=== PATIENT | female | born 1970 | race American Indian/Alaskan Native ===

== ENCOUNTER 2017-12-09 11:31 | Outpatient (CLI) | payer BC ==
--- NOTE | 2017-12-10 07:52 | Mammography Report ---
Screening mammogram: Routine views demonstrates asymmetric fibroglandular tissue density in the upper-outer right breast that is somewhat more prominent than seen on a prior exam in 2013. There is no definable mass and no architectural distortion. The breast pattern otherwise is generally symmetric and unremarkable as well as being unchanged from prior exam. It is of note that there is a mild technical differences between the 2 exams. CAD used. Impression: Right breast asymmetry of questionable significance. Recommendation: Additional compression imaging of the right breast and ultrasound, if needed. BI-RADS CATEGORY: 0 = Needs additional imaging evaluation ACR BI-RADS MAMMOGRAPHIC CODES: 0 = Needs additional imaging evaluation; 1 = Negative; 2 = Benign; 3 = Probably benign; 4 = Suspicious; 5 = Malignant; 6 = Known biopsy-proven malignancy COMMENT: 1. Dense breast tissue, i.e., adenosis, fibrocystic changes, etc., may obscure an underlying neoplasm. 2. Approximately 10% of cancers are not detected with mammography. 3. A negative mammography report should not delay biopsy if a clinically suspicious mass is present.
== END 2017-12-09 11:32 | disposition home or self-care (01) ==
LOC: MAMMO 11:31
PROVIDERS: ATTEND Obstetrics & Gynecology
DX: Z12.31 Encounter for screening mammogram for malignant neoplasm of breast (principal)
CPT/HCPCS: 77067

== ENCOUNTER 2017-12-17 09:54 | Outpatient (CLI) | payer BC ==
--- NOTE | 2017-12-17 11:31 | Ultrasound Report ---
RIGHT DIGITAL DIAGNOSTIC MAMMOGRAM and RIGHT BREAST ULTRASOUND: 12/17/17 09:54:00 CLINICAL: Recalled for asymmetry. A bilateral breast reduction is planned for next week. COMPARISON:12/09/17 screening FINDINGS: Additional mammographic views were performed and demonstrate normal fibroglandular structures in the upper outer quadrant. Ultrasound of the upper outer quadrant of the right breast was performed and demonstrated normal structures with no mass, cyst or shadowing. IMPRESSION: Negative mammogram and negative right breast ultrasound. BI-RADS CATEGORY: 1 -- Negative RECOMMENDATION: Routine mammographic screening in one year. ACR BI-RADS MAMMOGRAPHIC CODES: 0 = Needs additional imaging evaluation; 1 = Negative; 2 = Benign; 3 = Probably benign; 4 = Suspicious; 5 = Malignant; 6 = Known biopsy-proven malignancy COMMENT: 1. Dense breast tissue, i.e., adenosis, fibrocystic changes, etc., may obscure an underlying neoplasm. 2. Approximately 10% of cancers are not detected with mammography. 3. A negative mammography report should not delay biopsy if a clinically suspicious mass is present. COMMENT: Patient follow-up letters are generated via our [employer] application.
== END 2017-12-17 09:55 | disposition home or self-care (01) ==
LOC: MAMMO 09:54
PROVIDERS: ATTEND Obstetrics & Gynecology
DX: R92.8 Other abnormal and inconclusive findings on diagnostic imaging of breast (principal)

== ENCOUNTER 2019-10-08 09:00 | Observation (INO) | payer BC ==
[2019-10-05 10:49] LABS: Hematocrit 38.3 % (30.3-42.9); Hemoglobin 12.3 gm/dl (10.1-14.3); Mean Corpuscular HGB Conc 32 % (30-34); Mean Corpuscular Volume 85 fl (79-97); Platelet Count 214 K/mm3 (140-440); Red Blood Count 4.49 M/mm3 (3.65-5.03)
[2019-10-05 10:51] LABS: Red Cell Distribution Width 21.8 % (13.2-15.2)
--- NOTE | 2019-10-05 10:53 | Anesthesia Consultation ---
Anesthesia Consult and Med Hx - Airway Anesthetic Teeth Evaluation: Good ROM Head & Neck: Adequate Mental/Hyoid Distance: Adequate Mallampati Class: Class II Intubation Access Assessment: Good - Pulmonary Exam CTA: Yes - Cardiac Exam Cardiac Exam: RRR - Pre-Operative Health Status ASA Pre-Surgery Classification: ASA2 Proposed Anesthetic Plan: General Nerve Block: TAP - Pulmonary Hx Smoking: No Hx Asthma: No COPD: No - Cardiovascular System Hx Hypertension: No - Central Nervous System Hx Neuromuscular Disorder: No Hx Psychiatric Problems: No - Gastrointestinal Hx Ulcer: No - Endocrine Hx Renal Disease: No - Hematic Hx Anemia: Yes - Other Systems Hx Alcohol Use: Yes (Occas) Hx Cancer: No
[2019-10-05 11:03] LABS: BUN/Creatinine Ratio 18; Blood Urea Nitrogen 11 mg/dL (7-17); Calcium 8.7 mg/dL (8.4-10.2); Hemolysis Index 8
[2019-10-05 11:32] LABS: Anisocytosis 1+; Basophils % (Manual) 0 % (0.0-1.8); Eosinophils % (Manual) 0 % (0.0-4.3); Platelet Estimate Consistent w Auto; Total Cells Counted 100
--- NOTE | 2019-10-05 21:37 | History and Physical Report ---
History of Present Illness Date of examination: 10/05/19 History of present illness: Patient has been reassessed/reevaluated. H&P has been reviewed. No interval changes. This is a 48 years old female patient complains of menorrhagia, dysmenorrhea and back pain, but denies abnormal pap smears, dyspareunia, post-coital bleeding, abnormal vaginal discharge, breast mass or lumps, depression, anxiety, urinary symptoms, chest pain, palpitations, shortness of breath, leg swelling, abdominal pain, headaches and bowel problems. The patient notes that she is sexually active. The patient reports that she has regular menses. The patient also presents with menstrual disorder. The symptoms began >1 year ago. She complains of heavy bleeding and dysmenorrhea, but denies irregular menses, mid-cycle spotting, lack of menses, clotting, history of ovarian cysts, history of thyroid disease, history of fibroids, history of PCOS, history of bleeding disorder, lightheadedness, fatigue and cramping. Interval between menses is 28 days and 30 days. Menstrual flow lasts 5 days and 7 days. Patient states hospitalized 07/07 to 07/[address] 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 Patient's work up has included hysterosonogram which showed a thicken endometrium with an anterior myoma. Patient initially desired expectant management for now. Her symptoms have worsen.Patient's symptoms when present disrupts her normal daily activities Patient desires definitive treatment Vital Signs: Patient Profile: 48 Years Old Female LMP: 09/07/2019 Height: 66 inches (167.64 cm) Weight: 204 pounds BMI: 32.92 Menstrual History: LMP (date): 09/07/2019 Current Method of Contraception: BTL Date of Last Pap Smear: 03/30/2019 Past History : 3 Term Births: 3 Premature Births: 0 Living Children: 3 Para: 3 Mult. Births: 0 Prev : 0 Aborta: 0 Elect. Ab: 0 Spont. 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 of genital herpes: yes Current Allergies (reviewed today): No known allergies Past Medical History: " bulging disc" Anemia s/p Iron infusions (09/2017) Fibroids Blood Transfusion (07/07/2019) Past Surgical History: : Tubal Ligation (1997) PPBTL Gastric Bypass: (05/13/2014) gastric sleeve Breast Reduction: (12/2017/) Family History Summary: Reviewed history Last on 03/30/2019 and no changes required:10/05/2019 General Comments - FH: Family History of Coronary Heart Disease Family History of Diabetes Family History of CVA or Stroke Family History of Hypertension No Family History of Breast Cancer No Family History of Cervical Cancer No Family History of Colon Cancer No Family History of Ovarvian Cancer Social History: 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 Denies fever, chills, sweats, anorexia, weakness, malaise, weight loss and sleep disorder. Complains of menorrhagia, pelvic pain, painful periods and painful sex. Denies vaginal discharge, incontinence, dysuria, hematuria, urinary frequency, amenorrhea, abnormal vaginal bleeding, genital sores, decreased libido, urinary urgency, hot flashes, vaginal dryness, vaginal itching and vaginal odor. CV Denies chest pains, palpitations, syncope, dyspnea on exertion, orthopnea, PND and peripheral edema. Resp Denies cough, dyspnea at rest, excessive sputum, hemoptysis, wheezing and pleurisy. GI Denies nausea, vomiting, diarrhea, constipation, change in bowel habits, abdominal pain, melena, hematochezia, jaundice, gas/bloating, indigestion/heartburn, dysphagia and odynophagia. Breast Denies left breast lump, right breast lump, nipple discharge, bloody discharge from nipple, breast pain, abnormal mammogram and breast enlargement. Psych Denies depression, anxiety, irritability and mood swings. Past History Past Medical History: other (SEE HPI) Past Surgical History: Other (SEE HPI) Social history: full code, other (SEE HPI) Family history: other (SEE HPI) Medications and Allergies Allergies Allergy/AdvReac Type Severity Reaction Status Date / Time No Known Allergies Allergy Unverified 10/02/19 07:52 Home Medications Medication Instructions Recorded Confirmed Last Taken Type HYDROcodone/APAP 10-325 [[place] 1 each PO Q8HR PRN 10/05/19 10/05/19 Unknown History 10325] tiZANidine [Zanaflex 4mg TAB] 4 mg PO BID 10/05/19 10/05/19 Unknown History Active Meds: Active Medications Lactated Ringer's (Lactated Ringers) 1,000 mls @ 100 mls/hr IV DIRECT JACKIE Midazolam HCl (Versed) 2 mg IV PREOP NR Stop: 10/05/19 23:59 Review of Systems Constitutional: other (SEE HPI) Exam - Physical Exam Narrative exam: HEENT: normocephalic, no lesions or deformities Skin no significant abnormal lesions or rashes Chest: respiratory effort normal, clear to auscultation Breasts: Breast reduction surgical scars bilaterally skin/areolae normal, no masses, no nipple discharge, no erythema/warmth/tenderness, and axillae normal. 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 No evidence of cystocele or rectocele. Cervix: normal appearance, no lesions, no discharge Uterus: enlarged uterus 14 -16 weeks in size Adnexae: unable to palpate due to patient's guarding Rectovaginal: exam defered - Constitutional Vitals: Temp Pulse Resp BP Pulse Ox 98.6 F 60 20 120/79 99 10/05/19 10:20 10/05/19 10:20 10/05/19 10:20 10/05/19 10:20 10/05/19 10:20 Results - Labs CBC & Chem 7: 10/05/19 10:30 10/05/19 10:17 Labs: Abnormal lab results 10/05/19 10/05/19 Range/Units 10:17 10:30 WBC 3.0 L (4.5-11.0) K/mm3 MCH 27 L (28-32) pg RDW 21.8 H (13.2-15.2) % Lymphocytes % (Manual) 47.0 H (13.4-35.0) % Seg Neutrophils # Man 1.4 L (1.8-7.7) K/mm3 Creatinine 0.6 L (0.7-1.2) mg/dL Assessment and Plan - Patient Problems (1) Intramural leiomyoma of uterus Status: Acute Plan to address problem: Diagnosis explained to patient . Questions answered. Discussed with patient various medical, surgical and radiological therapies common for treatment including expectant management, myomectomy hysterectomy and uterine artery embolization Patient desires definitive treatment Patient desires hysterectomy Discussed risks and benefits of laparotomy, laparoscopy, vaginal and robotic assisted approaches for hysterectomies Patient desires robotic assisted total hysterectomy. Patient desires robotic assisted total hysterectomy. Consent reviewed and signed . The risks and alternatives for this surgery were reviewed with the patient. Discuss the risks of the surgery including infection, bleeding possibly heavy enough to require a blood transfusion, possible damage to bowel, bladder or ureter. Patient understand that this surgery with make her sterile.Patient understands if her ovaries are removed she will become menopausal. Also if unable to complete robitcally a laparotomy may be required. Patient advised the small risks of spreading of malignancy if morcellator is used during the surgery patient understands and approve of use if necessary. Patient desires retain her ovaries unless an abnormality is seen (2) Menorrhagia Status: Acute Qualifiers: Menorrhagia type: with regular cycle Qualified Code(s): N92.0 - Excessive and frequent menstruation with regular cycle Plan to address problem: Probably secondary to # 1 (3) Dysmenorrhea Status: Acute Plan to address problem: Probably secondary to # 1 (4) Anemia due to blood loss, chronic Status: Acute Plan to address problem: Probably secondary to # 2 (5) Lumbar disc disease Status: Acute (6) Peripheral vascular disease Status: Acute Plan to address problem: Patient states her PCP Dr Hopkins informed her that she may have peripheral vaccular disease Patient states he informed her that it was ok for her to proceed with her hysterectomy and further diagnostic testing will be done postoperatively.
--- NOTE | 2019-10-08 07:51 | Anesthesia Day of Surgery ---
Anesthesia Day of Surgery - Day of Surgery Patient Examined: Yes Patient H&P Reviewed: Yes Patient is NPO: Yes
--- NOTE | 2019-10-08 08:48 | Event Note ---
Date: 10/08/19 TAP Block After time out, the areas were prepped and draped in the usual fashion. Iv sedation with Versed 2 mg and Fentanyl 100mcg. Good visualization on both sides. 20 ml of 0.5 % Ropivacaine injected per side in 5 ml increments and negative aspiration for blood. VSS Pt tolerated procedure well.
[~2019-10-08 09:00] MED LIST: BUPIVACAINE/PF (0.5%) 5 MG/1 ML 10 ML VIAL INFILTRATI NR; GLYCOPYRROLATE 0.4 MG/2 ML INJ ONE; HYDROmorphone 1 MG/1 ML INJ ONE; KETOROLAC 30 MG/1 ML INJ ONE; LACTATED RINGERS 1,000 ML IV SCH; LIDOCAINE MPF (2%) 20 MG/1 ML VIAL 5 ML ONE; METOCLOPRAMIDE 10 MG/2 ML INJ ONE; MIDAZOLAM 2 MG/2 ML INJ IV NR; MIDAZOLAM 2 MG/2 ML INJ IV SCH; MIDAZOLAM 2 MG/2 ML INJ ONE; NEOMY 40 MG/POLYMYXIN B 200,000 UNITS/ML (GU) AMPULE IR ONE; NEOSTIGMINE 10MG/10 ML INJ MDV ONE; ONDANSETRON 4 MG/2 ML INJ ONE; ROCURONIUM 50 MG/5 ML INJ IV ONE; ROPIVACAINE/PF (0.5%) 5 MG/1 ML 30 ML VIAL ONE; ceFAZolin/STERILE WATER 2 GM/20 ML SYRINGE IV NR; ceFAZolin/Water 2 GM/20 ML 2 GM/20 ML SYRINGE IV NR; dexAMETHasone 20 MG/5 ML VIAL ONE; fentaNYL 100 MCG/2 ML INJ IV ONE; fentaNYL 100 MCG/2 ML INJ ONE; propofoL 200 MG/20 ML VIAL IV ONE
[2019-10-08] MEDS ORDERED: CITRIC ACID-SOD CITRATE 500 ML IV ONE (09:10)
[2019-10-08] MEDS ORDERED: SODIUM CHLORIDE 0.9% IRR 1,500 ML BOTTLE IR ONE (09:39)
[2019-10-08] MEDS ORDERED: SODIUM CHLORIDE 0.9% IRRIG SOLN 2000 ML IR ONE (09:39)
[2019-10-08] MEDS ORDERED: NEOMY 40 MG/POLYMYXIN B 200,000 UNITS/ML (GU) AMPULE IR ONE (09:39)
[2019-10-08] MEDS ORDERED: CITRIC ACID-SOD CITRATE SOLN 500 ML IV SOLN IV ONE (09:40)
[2019-10-08] MEDS ORDERED: LACTATED RINGERS 1,000 ML ONE (09:50)
[2019-10-08] MEDS ORDERED: ROCURONIUM 50 MG/5 ML INJ IV ONE (09:50)
[2019-10-08] MEDS ORDERED: ePHEDrine SULFATE 50 MG/1 ML INJ ONE (09:54)
[2019-10-08] MEDS ORDERED: SODIUM CHLORIDE P/F VIAL 10 ML 10 ML ONE (09:55)
[2019-10-08] MEDS ORDERED: GLYCOPYRROLATE 0.4 MG/2 ML INJ ONE (10:57)
--- NOTE | 2019-10-08 11:35 | Operative Report ---
Operative Report Operative Report: Date of procedure: October 08, 2019 Pre-operative diagnosis: Symptomatic leiomyomata with menorrhalgia and dysmen orrhea. Status post blood transfusions for severe anemia Post-operative diagnosis: Same Procedure name(s):Robotic Assisted Total Hysterectomy with bilateral salpingectomy Surgeon: Pj Umanzor MD Sharepoint Application Architect: Deborah Tee, certified home health aide Anesthesia: General EBL: 100 cc Complications: None Findings: Patient with the uterus with multiple myomas with size approximately 14 to 16 weeks she had normal-appearing ovaries bilaterally corpus luteum cyst on her right ovary bilaterally her lochia and tubes were interrupted from previous tubal ligation Specimen(s): Uterus with cervix and bilateral fallopian tubes Procedure: Patient was brought to the operating room where general anesthesia was induced without difficulty. Patient was placed in the dorsal lithotomy position. Prepped and draped in the usual sterile manner for robotic procedure. Wharton catheter was placed without difficulty. Speculum was placed in the vagina. A large V-Care Uterine manipulator was placed without difficulty. Attention was now switched to the patient's abdomen. A vertical supra-umbilicus incision was made with a scalpel. A 10-12 trocar was placed in this incision under direct visualization. Intra-abdominal placement was verified with no evidence of internal organ damage. The patient pelvic findings were noted as above. It was determined that the patient was a candidate for robotic procedure. On both sides the umbilical incision at about 8 cm, incisions were made for robotic trocars. Each robotic trocar was placed under direct visualization with no evidence of internal organ damage. One 5 mm trocar was placed 2 fingerbreadths above the right iliac crest. A 5 mm camera was placed in the right lower quadrant trocar, the 10-12 trocar was removed and a Ernst Fulton laparoscopic port closure device was placed through this incision under direct visualization with no evidence of internal organ damage. The 10-12 trocar was then replaced into midline port under direct camera assistance. At this time the patient was placed in extreme Trendelenburg. The da Marilyn robot was then docked on the patient's left side. The trocars connected to the robot appropriately robotic instruments were placed under direct visualization no evidence of internal organ damage.. At this time I took my place under the robotic operating watkins. Starting on the patient's right side the ureter was identified and found to be out of the operative field. Using the robotic vessel sealer the mesosalpinx under the fallopian tube were cauterized and cut starting from the distal end. Utero-ovarian complex was then cauterized and cut. This was followed by cauterizing and cutting the right fallopian tube and right round ligament. The broad ligament was then opened. The bladder flap was formed anteriorly. The posterior broad ligament was then excised. The uterine vessels were skeletonized. The ureter was clearly seen out of the operative field. The bladder was pushed away from the anterior uterus. The right uterine vessels were then cauterized and cut. Attention was then switched to the patient's left side. The same procedure was repeated on the left side with perform the salpingectomy followed by isolating the uterine vessels cauterized and cutting and completing the bladder flap from the left side. At this time the uterus was appearing very cyanotic. After inspecting the bladder flap to insured no evidence of bladder injury, the colpotomy was then started. Incision started at 6:00 until the V-Care could be seen. This incision was extended from 6:00 to 9:00. Then from 6:00 to 3:00. Then from 9:00 to 12:00. This incision was extended from 3:00 to 12:00. At this time colpotomy was complete with no evidence of adjacent organ damage. The dental front office assistant remove the uterus from through the colpotomy site. The vaginal cuff was irrigated and cauterized and found to be hemostatic. The cuff was closed with roboticly using 0 V- Lock suture. This closure was hemostatic after irrigation and Bovie. All pedicles were inspected and found to be hemostatic. The ureters were identified bilaterally and found to be functioning normal. The patient had clear urine in the Wharton catheter with no evidence of mixture with blood. Irais was placed on the cuff and pedicles for postoperative hemostasis . All instruments were then removed. The large trocar sites were closed in layers 2-0 Vicryl and 4-0 Monocryl. The smaller incisions were closed subcuticularly with 4-0 Monocryl. Dermabond was placed over the skin incisions. The patient tolerated procedure well. She was awakened in the operating room and accompanied to the recovery room in good condition.
[2019-10-08] MEDS: HYDROmorphone 1 MG/1 ML INJ IV PRN ×2 (11:46→12:00)
[2019-10-08] MEDS ORDERED: ONDANSETRON 4 MG/2 ML INJ IV PRN ×2 (11:50→13:21)
[2019-10-08] MEDS ORDERED: HYDROmorphone 1 MG/1 ML INJ ONE (11:52)
[2019-10-08] MEDS ORDERED: D5W/LACTATED RINGERS 1,000 ML IV ONE (12:15)
--- NOTE | 2019-10-08 12:57 | Post Anesthesia Evaluation ---
- Post Anesthesia Evaluation Patient Participated: Yes Airway Patent: Yes Stable Respiratory Function: Yes Nausea/Vomiting: No Temp > 96.8F: Yes Pain Manageable: Yes Adequeate Hydration: Yes Anesthesia Complications: No
[2019-10-08] MEDS ORDERED: D5W/LACTATED RINGERS 1,000 ML IV SCH (13:21)
[2019-10-08] MEDS: ceFAZolin/NS 1 GM/50 ML 1 GM/50 ML BAG IV SCH ×2 (14:16→21:59)
[2019-10-08] MEDS: KETOROLAC 30 MG/1 ML INJ IV SCH ×2 (14:16→20:00)
[2019-10-08] MEDS: HYDROcodone/ACETAMINOPHEN 5-325 MG TAB PO PRN ×2 (16:03→22:01)
--- NOTE | 2019-10-08 17:20 | Event Note ---
Date: 10/08/19 Day of surgery. Discuss operative findings with patient and questions answered. Patient complains of abdominal pain but denies any nausea vomiting. Patient without fever. Will ambulate in halls this evening. Good urine output. We will continue routine postoperative care.
[2019-10-08] MEDS ORDERED: DOCUSATE SODIUM 100 MG CAP PO SCH (22:00)
[2019-10-08] MEDS ORDERED: tiZANidine TAB 4 MG TAB PO SCH (22:00)
[2019-10-09] MEDS: KETOROLAC 30 MG/1 ML INJ IV SCH ×2 (02:46→08:06)
[2019-10-09 04:30] LABS: Hematocrit 37.2 % (30.3-42.9); Hemoglobin 11.9 gm/dl (10.1-14.3)
[2019-10-09] MEDS ORDERED: IBUPROFEN 800 MG TAB PO PRN (06:00)
[2019-10-09] MEDS: HYDROcodone/ACETAMINOPHEN 5-325 MG TAB PO PRN (06:21)
--- NOTE | 2019-10-09 10:44 | Short Stay Summary ---
Short Stay Documentation Date of service: 10/08/19 - History H&P: dictated Past Medical History: other (SEE HPI) Past Surgical History: Other (SEE HPI) Social history: full code, other (SEE HPI) - Allergies and Medications Current Medications: Allergies No Known Allergies Allergy (Unverified 10/02/19 07:52) Home Medications Medication Instructions Recorded Confirmed Last Taken Type HYDROcodone/APAP 10-325 [[place] 1 each PO Q8HR PRN 10/05/19 10/08/19 10/07/19 23:00 History 10/325] tiZANidine [Zanaflex 4mg TAB] 4 mg PO BID 10/05/19 10/08/19 10/07/19 23:00 History Ibuprofen [Motrin 800 MG tab] 800 mg PO Q6H PRN #30 tablet 10/08/19 Unknown Rx oxyCODONE /ACETAMINOPHEN [Percocet 1 - 2 tab PO Q4H PRN #20 tablet 10/08/19 Unknown Rx 5/325 mg] Active Medications Acetaminophen/Hydrocodone Bitart (Horton 5/325) 2 each PO Q6H PRN PRN Reason: Pain, Moderate (4-6) Last Admin: 10/09/19 06:21 Dose: 2 each Documented by: Docusate Sodium (Colace) 100 mg PO BID [facility] Last Admin: 10/08/19 22:02 Dose: 100 mg Documented by: Dextrose/Lactated Ringer's ([email or web address]) 1,000 mls @ 125 mls/hr IV DIRECT JACKIE Ibuprofen (Ibuprofen) 800 mg PO Q6H PRN PRN Reason: Pain, Mild (1-3) Ketorolac Tromethamine (Toradol) 30 mg IV Q6H [facility] Stop: 10/09/19 13:59 Last Admin: 10/09/19 08:06 Dose: 30 mg Documented by: Ondansetron HCl (Zofran) 4 mg IV Q8H PRN PRN Reason: Nausea And Vomiting Tizanidine HCl (Zanaflex) 4 mg PO BID [facility] Last Admin: 10/08/19 22:07 Dose: 4 mg Documented by: - Physical exam General appearance: no acute distress Integumentary: no rash HEENT: Atraumatic Lungs: Normal air movement Breasts: deferred Heart: Regular rate Gastrointestinal: normal, tenderness (Appropriately post operative) Female Genitourinary: deferred Rectal Exam: deferred Extremities: no ischemia Neurological: Normal gait, Normal speech - Brief post op/procedure progress note Date of procedure: 10/08/19 (See dictated operative note) - Hospital course Hospital course: Patient was admitted and underwent above procedure without complications. Her post operative course was benign she was afebrile throughout. Patient postoperative hematocrit was in an acceptable range. Patient had no orthostatic symptoms. Patient was tolerating regular diet and voiding without difficulty at time of discharge. Patient incision was healing well without evidence of infection. - Disposition Condition at discharge: Good Disposition: DC-01 TO HOME OR SELFCARE - Discharge Diagnoses (1) Intramural leiomyoma of uterus Status: Acute (2) Menorrhagia Status: Acute Qualifiers: Menorrhagia type: with regular cycle Qualified Code(s): N92.0 - Excessive and frequent menstruation with regular cycle (3) Dysmenorrhea Status: Acute (4) Anemia due to blood loss, chronic Status: Acute (5) Lumbar disc disease Status: Acute (6) Peripheral vascular disease Status: Acute (7) Status post hysterectomy Status: Acute (8) Status post robot-assisted surgical procedure Status: Acute Short Stay Discharge Plan Activity: advance as tolerated Diet: regular Wound: open to air Additional Instructions: [] Smoking cessation referral if applicable(refer to patient education folder for contact #) [] Refer to [facility] Booklet Call your doctor immediately for: * Fever > 100.5 * Heavy vaginal bleeding ( >1 pad per hour) * Severe persistent headache * Shortness of breath * Reddened, hot, painful area to leg or breast * Drainage or odor from incision. * Keep incision clean and dry at all times and follow doctor's instructions regarding bathing/showering Patient instructed no heavy lifting for 4 weeks. No intercourse for 8 weeks. Call office for fever, chills, nausea, vomiting or pain not controlled by pain medications. Ambulation is encouraged. Patient's call for heavy vaginal bleeding. Patient instructed to keep her scheduled post operative office appointment. Follow up with: MARC REYEZ MD [Primary Care Provider] - 7 Days Forms: [facility] Discharge Summary Prescriptions: Ibuprofen [Motrin 800 MG tab] 800 mg PO Q6H PRN #30 tablet PRN Reason: Pain oxyCODONE /ACETAMINOPHEN [Percocet 5/325 mg] 1 - 2 tab PO Q4H PRN #20 tablet PRN Reason: Pain, Moderate
[2019-10-09 13:58] VITALS: BP 110/56
== END 2019-10-09 11:55 | disposition home or self-care (01) ==
LOC: OR 09:00 → OB 12:44
PROVIDERS: ADMIT Obstetrics & Gynecology; ATTEND Obstetrics & Gynecology
DX: D25.1 Intramural leiomyoma of uterus (principal); N92.0 Excessive and frequent menstruation with regular cycle; N94.6 Dysmenorrhea, unspecified; D50.0 Iron deficiency anemia secondary to blood loss (chronic); I73.9 Peripheral vascular disease, unspecified; M51.86 Other intervertebral disc disorders, lumbar region
CPT/HCPCS: 36415; 58571; 64450; 80048; 84703; 85007; 85014; 85018; 85025; 86850; 86900; 86901; 88305; 88307; 96365; 96366; 96375; 96376; A4217; G0378; J0690; J1100; J1170; J1885; J2250; J2405; J2704; J2710; J2765; J2795; J3010; J7120; J7121; S2900

== ENCOUNTER 2020-05-09 06:56 | Outpatient (CLI) | payer BC ==
--- NOTE | 2020-05-09 10:35 | Fluoroscopy Report ---
FLUOROSCOPY BARIUM ENEMA HISTORY: Rectovaginal fistula, recent hysterectomy. COMPARISON: None. FINDINGS: A modified single contrast exam was performed with Gastrografin contrast agent to evaluate for rectov aginal fistula. [employer] film of the abdomen is unremarkable. A rectal tube was inserted and secured by balloon inflation. Approximately 1 L of water-soluble contrast was administered into the rectum and c olon. No rectovaginal fistula is detected. Single contrast examination of the remainder of the colon is within normal limits. There is no eviden ce for mass lesion, stricture or abnormal dilatation. The appendix was not identified. IMPRESSION: No rectovaginal fistula is detected. Unremarkable single contrast examination of the colon. Fluoroscopy time: 3.6 minutes. Fluoroscopic images: 17. Signer Name: Jarocho Zayas Jr, MD Signed: 05/09/2020 10:31 AM Workstation Name: [id number]
== END 2020-05-09 06:57 | disposition home or self-care (01) ==
LOC: FLUORO 06:56
PROVIDERS: ATTEND Obstetrics & Gynecology
DX: N82.3 Fistula of vagina to large intestine (principal)
CPT/HCPCS: 74270; Q9963

== ENCOUNTER 2020-07-07 14:04 | Outpatient (CLI) | payer BC ==
--- NOTE | 2020-07-08 08:13 | Mammography Report ---
DIGITAL SCREENING MAMMOGRAM WITH CAD, 07/07/2020 INDICATION: Routine screening mammography. TECHNIQUE: Digital bilateral 2D mammography was obtained in the craniocaudal and mediolateral obliq ue projections. This examination was interpreted with the benefit of Computer-Aided Detection analysi s. COMPARISON: 06/01/2019. FINDINGS: Breast Density: There are scattered areas of fibroglandular density. There is no evidence of dominant mass, suspicious calcifications or architectural distortion in eithe r breast. IMPRESSION: Follow up recommendation: Routine yearly BI-RADS Category 1: Negative. A "normal" or negative report should not discourage follow up or biopsy of a clinically significant f inding. A written summary of these findings will be mailed to the patient. The patient will be entered into a mammography reporting system which will generate a reminder letter for the patient's next appointmen t at the appropriate interval. The [employer] recommends yearly mammograms starting at age 40 and continuing as l jan as a woman is in good health. Breast MRI is recommended for women with an approximate 20-25% or greater lifetime risk of breast cancer, including women with a strong family history of breast or ova andrea cancer or who have been treated for Hodgkin's disease. Signer Name: Khang Andersen MD Signed: 07/08/2020 8:08 AM Workstation Name: [id number]
== END 2020-07-07 14:05 | disposition home or self-care (01) ==
LOC: MAMMO 14:04
PROVIDERS: ATTEND Obstetrics & Gynecology
DX: Z12.31 Encounter for screening mammogram for malignant neoplasm of breast (principal)
CPT/HCPCS: 77067

== ENCOUNTER 2021-09-16 19:45 | Emergency (ER) | payer BC ==
[2021-09-16 20:41] VITALS: BP 104/76
== END 2021-09-16 21:29 | disposition left against medical advice (07) ==
LOC: ED 19:45
DX: R29.810 Facial weakness (principal); Z53.21 Procedure and treatment not carried out due to patient leaving prior to being seen by health care provider
CPT/HCPCS: 82962